=== PATIENT | male | born 1965 | race Caucasian/White ===

== ENCOUNTER → 2020-03-07 | Outpatient (CLI) | payer OTHER | END | disposition home or self-care (01) | LOC: COVID19 13:29 | DX: U07.1 COVID-19 (principal); B34.9 Viral infection, unspecified ==

== ENCOUNTER 2022-06-13 18:50 | Inpatient (IN) | payer BC ==
[~2022-06-13] VITALS: Ht 172.7 cm; Wt 173.8 kg
[2022-06-13 19:29] VITALS: BP 135/74
[2022-06-13 20:05] LABS: BASO # 0.1 10*3/uL (0.0-0.1); BASO % 0.4 % (0.0-1.0); EOS % 0.1 % (1.0-4.0); HEMATOCRIT 44.6 % (42.0-52.0); LYMPH % 8.2 % (27.0-41.0); MEAN CELL VOLUME 90.7 fl (80.0-94.0); MEAN CORPUSCULAR HGB 30.5 pg (27.0-31.0); MEAN CORPUSCULAR HGB CONC 33.6 g/dl (33.0-37.0); MEAN PLATELET VOLUME 9.8 fl (9.6-12.3); MONO # 1.2 10*3/uL (0.1-1.0); NEUT # 9.9 10*3/uL (2.3-7.9); NEUT % 80.1 % (47.0-73.0); PLATELET COUNT AUTOMATED 163 10*3/uL (130-400); RED BLOOD COUNT 4.92 10*6/uL (4.50-5.90); RED CELL DISTRI WIDTH 14.6 % (0-14.5); WHITE BLOOD COUNT 12.3 10*3/uL (4.8-10.8)
[2022-06-13 20:15] LABS: INTERNATIONAL NORM RATIO 1.1 (2.0-3.5)
[2022-06-13 20:22] LABS: ALKALINE PHOSPHATASE 83 U/L (45-117); BUN 14 mg/dl (7-24); CHLORIDE 102 mmol/L (98-107); CREATININE 0.84 mg/dL (0.70-1.30); POTASSIUM 3.6 mmol/L (3.5-5.1); SGOT/AST 34 IU/L (3-35); SGPT/ALT 42 U/L (12-78); SODIUM 135 mmol/L (136-145); TOTAL PROTEIN 6.5 gm/dL (6.4-8.2)
[2022-06-13 22:25] VITALS: BP 138/68
[2022-06-14] VITALS: BP 138/68
[2022-06-14 06:06] LABS: BASO # 0.1 10*3/uL (0.0-0.1); BASO % 0.5 % (0.0-1.0); EOS # 0.1 10*3/uL (0.0-0.4); EOS % 0.5 % (1.0-4.0); HEMATOCRIT 43.3 % (42.0-52.0); LYMPH # 1.1 10*3/uL (1.3-4.4); LYMPH % 9.7 % (27.0-41.0); MEAN CELL VOLUME 91.2 fl (80.0-94.0); MEAN CORPUSCULAR HGB 29.9 pg (27.0-31.0); MEAN CORPUSCULAR HGB CONC 32.8 g/dl (33.0-37.0); MONO # 1.1 10*3/uL (0.1-1.0); MONO % 9.7 % (3.0-9.0); NEUT # 8.6 10*3/uL (2.3-7.9); NEUT % 77.9 % (47.0-73.0); PLATELET COUNT AUTOMATED 166 10*3/uL (130-400); RED BLOOD COUNT 4.75 10*6/uL (4.50-5.90); RED CELL DISTRI WIDTH 14.6 % (0-14.5); WHITE BLOOD COUNT 11.1 10*3/uL (4.8-10.8)
[2022-06-14 06:17] LABS: BUN 11 mg/dl (7-24); CHLORIDE 106 mmol/L (98-107); CHOLESTEROL 118 mg/dL (<200); CREATININE 0.76 mg/dL (0.70-1.30); POTASSIUM 3.8 mmol/L (3.5-5.1); SGOT/AST 37 IU/L (3-35); SGPT/ALT 49 U/L (12-78); SODIUM 142 mmol/L (136-145); TRIGLYCERIDES 109 mg/dl (<150)
[2022-06-14 06:22] LABS: ALKALINE PHOSPHATASE 76 U/L (45-117); FREE T4 1.38 ng/dl (0.76-1.46); LDL CHOLESTEROL 71 mg/dL (9-159)
[2022-06-14 08:00] VITALS: BP 144/63
[2022-06-14 12:00] VITALS: BP 153/65
[2022-06-14 16:00] VITALS: BP 141/71
[2022-06-14 20:00] VITALS: BP 144/63
[2022-06-15] VITALS: BP 138/66
[2022-06-15 06:26] LABS: MEAN CELL VOLUME 92.1 fl (80.0-94.0); MEAN CORPUSCULAR HGB 30.3 pg (27.0-31.0); MEAN CORPUSCULAR HGB CONC 32.9 g/dl (33.0-37.0); MEAN PLATELET VOLUME 9.6 fl (9.6-12.3); PLATELET COUNT AUTOMATED 189 10*3/uL (130-400); RED BLOOD COUNT 4.56 10*6/uL (4.50-5.90); RED CELL DISTRI WIDTH 14.6 % (0-14.5); WHITE BLOOD COUNT 12.2 10*3/uL (4.8-10.8)
[2022-06-15 06:39] LABS: ALKALINE PHOSPHATASE 82 U/L (45-117); BUN 8 mg/dl (7-24); CHLORIDE 103 mmol/L (98-107); CREATININE 0.69 mg/dL (0.70-1.30); SGOT/AST 35 IU/L (3-35); SGPT/ALT 51 U/L (12-78); SODIUM 136 mmol/L (136-145); TOTAL PROTEIN 6.1 gm/dL (6.4-8.2)
[2022-06-15 06:48] LABS: MANUAL DIFF REFLEX YES
[2022-06-15 07:57] LABS: PLATELET SUFFICIENCY NORMAL (NORMAL); TOTAL CELLS COUNTED 100 #CELLS
[2022-06-15 08:00] VITALS: BP 147/86
[2022-06-15 12:00] VITALS: BP 141/73
[2022-06-15 16:00] VITALS: BP 149/72
[2022-06-15 20:00] VITALS: BP 142/69
[2022-06-16] VITALS: BP 105/58
[2022-06-16 06:10] LABS: BUN 8 mg/dl (7-24); CHLORIDE 102 mmol/L (98-107); CREATININE 0.66 mg/dL (0.70-1.30); POTASSIUM 3.8 mmol/L (3.5-5.1); SODIUM 138 mmol/L (136-145)
[2022-06-16 06:23] LABS: HEMATOCRIT 40.6 % (42.0-52.0); MEAN CELL VOLUME 90.4 fl (80.0-94.0); MEAN CORPUSCULAR HGB 30.3 pg (27.0-31.0); MEAN CORPUSCULAR HGB CONC 33.5 g/dl (33.0-37.0); MEAN PLATELET VOLUME 9.2 fl (9.6-12.3); PLATELET COUNT AUTOMATED 231 10*3/uL (130-400); RED BLOOD COUNT 4.49 10*6/uL (4.50-5.90); RED CELL DISTRI WIDTH 14.6 % (0-14.5)
[2022-06-16 06:47] LABS: MANUAL DIFF REFLEX YES
[2022-06-16 07:23] LABS: TOTAL CELLS COUNTED 100 #CELLS
[2022-06-16 07:24] LABS: BURR CELLS FEW; DOHLE BODIES FEW; PLATELET SUFFICIENCY NORMAL (NORMAL); POLYCHROMASIA SLIGHT; TOXIC GRANULATION SLIGHT
[2022-06-16 08:00] VITALS: BP 128/60
[2022-06-16 12:00] VITALS: BP 133/63
[2022-06-16 16:00] VITALS: BP 154/72
[2022-06-16 20:00] VITALS: BP 139/46
[2022-06-17 06:53] LABS: HEMATOCRIT 42.7 % (42.0-52.0); MEAN CORPUSCULAR HGB 30.4 pg (27.0-31.0); PLATELET COUNT AUTOMATED 257 10*3/uL (130-400); RED BLOOD COUNT 4.64 10*6/uL (4.50-5.90); RED CELL DISTRI WIDTH 14.6 % (0-14.5); WHITE BLOOD COUNT 12.1 10*3/uL (4.8-10.8)
[2022-06-17 06:56] LABS: MANUAL DIFF REFLEX YES
[2022-06-17 07:09] LABS: BUN 7 mg/dl (7-24); CHLORIDE 102 mmol/L (98-107); CREATININE 0.66 mg/dL (0.70-1.30); POTASSIUM 3.6 mmol/L (3.5-5.1); SODIUM 139 mmol/L (136-145)
[2022-06-17 07:22] LABS: BASOPHILS 1 % (0-1); BURR CELLS FEW; PLATELET SUFFICIENCY NORMAL (NORMAL); POLYCHROMASIA SLIGHT; TOTAL CELLS COUNTED 100 #CELLS; TOXIC GRANULATION SLIGHT
[2022-06-17 08:00] VITALS: BP 131/61
[2022-06-17 12:00] VITALS: BP 135/63
[2022-06-17 16:00] VITALS: BP 175/86
[2022-06-17] MEDS ORDERED: CEPHALEXIN500 M1 PO (17:38)
[2022-06-17] MEDS ORDERED: Cleocin150 MG PO (17:38)
[2022-06-17 20:00] VITALS: BP 138/70
[2022-06-18] VITALS: BP 146/68
[2022-06-18 06:21] LABS: BUN 9 mg/dl (7-24); CHLORIDE 103 mmol/L (98-107); POTASSIUM 3.7 mmol/L (3.5-5.1); SODIUM 138 mmol/L (136-145)
[2022-06-18 06:22] LABS: CREATININE 0.73 mg/dL (0.70-1.30)
[2022-06-18 06:26] LABS: HEMATOCRIT 42.7 % (42.0-52.0); MEAN CELL VOLUME 91.6 fl (80.0-94.0); MEAN CORPUSCULAR HGB CONC 32.8 g/dl (33.0-37.0); MEAN PLATELET VOLUME 9.2 fl (9.6-12.3); PLATELET COUNT AUTOMATED 308 10*3/uL (130-400); RED BLOOD COUNT 4.66 10*6/uL (4.50-5.90); RED CELL DISTRI WIDTH 14.4 % (0-14.5); WHITE BLOOD COUNT 12.5 10*3/uL (4.8-10.8)
[2022-06-18 06:38] LABS: MANUAL DIFF REFLEX YES
[2022-06-18 07:30] LABS: PLATELET SUFFICIENCY NORMAL (NORMAL); TOTAL CELLS COUNTED 100 #CELLS
[2022-06-18 08:00] VITALS: BP 147/72
[2022-06-18 12:23] VITALS: BP 142/79
== END 2022-06-18 12:30 | disposition home or self-care (01) | DRG 871 ==
LOC: ED 18:50 → 4E 20:51 → EDHOLD 20:51 → 4E 21:43
PROVIDERS: Internal Medicine; Physician Assistant; ADMIT Internal Medicine; ATTEND Internal Medicine
DX: A41.9 Sepsis, unspecified organism (principal); E43 Unspecified severe protein-calorie malnutrition; L03.115 Cellulitis of right lower limb; E87.1 Hypo-osmolality and hyponatremia; Z68.43 Body mass index [BMI] 50.0-59.9, adult; E66.01 Morbid (severe) obesity due to excess calories; R73.9 Hyperglycemia, unspecified; Z79.899 Other long term (current) drug therapy

== ENCOUNTER → 2022-06-19 | Outpatient (CLI) | payer BC ==
[~2022-06-19] MED LIST: CEPHALEXIN500 M1 PO; Cleocin150 MG PO
== END | disposition home or self-care (01) ==
LOC: WOUNDCARE 01:57
PROVIDERS: ATTEND Surgery
DX: L03.115 Cellulitis of right lower limb (principal)

== ENCOUNTER → 2022-06-22 | Outpatient (CLI) | payer BC | END | disposition home or self-care (01) | LOC: WOUNDCARE 07:05 | PROVIDERS: ATTEND Surgery | DX: L03.115 Cellulitis of right lower limb (principal) ==

== ENCOUNTER → 2022-06-26 | Outpatient (CLI) | payer BC | END | disposition home or self-care (01) | LOC: WOUNDCARE | PROVIDERS: ATTEND Surgery | DX: L03.115 Cellulitis of right lower limb (principal) ==

== ENCOUNTER → 2022-07-03 | Outpatient (CLI) | payer BC | END | disposition home or self-care (01) | LOC: WOUNDCARE 01:05 | PROVIDERS: ATTEND Surgery | DX: L03.115 Cellulitis of right lower limb (principal) ==

== ENCOUNTER → 2022-07-10 | Outpatient (CLI) | payer BC | END | disposition home or self-care (01) | LOC: WOUNDCARE 03:56 | PROVIDERS: ATTEND Surgery | DX: L03.115 Cellulitis of right lower limb (principal) ==